=== PATIENT | female | born 1985 | race Caucasian/White ===

== ENCOUNTER 2016-12-03 15:12 | Outpatient (CLI) | payer MEDICAID ==
[~2016-12-03] VITALS: Ht 165.1 cm; Wt 63.2 kg
[2016-12-03 15:22] VITALS: Ht 165.1 cm; Wt 63.2 kg
[2016-12-03] MEDS ORDERED: FER325 PO (15:22)
[2016-12-03] MEDS ORDERED: PRENAT PO (15:22)
[2016-12-03 15:23] VITALS: BP 112/75; PULSE 76; RESP 18
--- NOTE | 2016-12-03 15:51 | RADRPT ---
PROCEDURE: OB ultrasound with biophysical profile CLINICAL INDICATION: Biophysical profile. . TECHNIQUE: Multiple sonographic images of the pelvis were obtained. Transabdominal view of the gr avid uterus are available for review. The images were reviewed on a PACS workstation. COMPARISON: 07/11/2016 FINDINGS: Single intrauterine gestation. Presentation: cephalic. Placenta: Posterior breathing movement = 2/2 tone = 2/2 motion = 2/2 MARÍA ELENA = 2/2 MARÍA ELENA = 15.0 cm heart rate: 137 beats per minute IMPRESSION: Single intrauterine gestation. Biophysical profile 07/09 RPTAT: PP .Ravin Abbasi MD, MD Date Time Electronically viewed and signed by .Ravin Abbasi MD, on 12/03/2016 15:51 .B/
== END 2016-12-03 17:18 | disposition home or self-care (01) ==
LOC: OBT 15:12 → L-D 15:12 → OBT 17:18
PROVIDERS: ATTEND Obstetrics & Gynecology
DX: O62.9 Abnormality of forces of labor, unspecified (principal); Z3A.40 40 weeks gestation of pregnancy
CPT/HCPCS: 76818; Z7500; G0463